=== PATIENT | female | born 1960 | race Caucasian/White ===

== ENCOUNTER 2016-03-30 14:11 | Emergency (ER) | payer MEDICARE, MEDICAID ==
[2016-03-30 14:35] VITALS: TEMP 97.9; BMI 31.3
--- NOTE | 2016-03-30 16:43 | EDPRACDOC ---
- General Information Chief Complaint: Generalized Weakness Stated Complaint: AMS Time Seen by Provider: 03/30/16 16:32 Information Source: Patient Mode of Arrival: Ambulance Home Medications: Home Medications Cholecalciferol (Vitamin D3) [Vitamin D3] 5,000 unit PO DAILY 07/17/15 Levothyroxine Sodium [Synthroid] 100 mcg PO QAM 07/17/15 Multivitamin [Multivitamins] 1 cap PO QAM 07/17/15 Sennosides/Docusate Sodium [Senna-Docusate Sodium Tablet] 1 tab PO DAILY Sumatriptan Succinate [Imitrex] 100 mg PO DIR PRN 10/31/15 Budesonide/Formoterol Fumarate [Symbicort 160-4.5 Mcg Inhaler] 2 puff INH BID PRN 11/25/15 Ipratropium/Albuterol Sulfate [Combivent Respimat Inhal Scheller] 1 puff INH TID PRN 11/25/15 Tizanidine HCl [Zanaflex] 4 mg PO TID PRN 11/25/15 Vitamin B Complex [B Complex] 1 tab PO QAM 11/25/15 Magnesium Oxide [Mag-Ox] 400 mg PO BID #60 tablet 12/03/15 Aripiprazole [Abilify] 15 mg PO QAM 01/08/16 Duloxetine [Cymbalta] 60 mg PO QAM 01/08/16 Oxycodone HCl [Oxycodone Immediate Release] 15 mg PO QID PRN 01/08/16 Oxymorphone HCl [Oxymorphone HCl ER] 20 mg PO Q12H 01/08/16 Albuterol Sulfate [Proair Hfa] 2 puff INH Q4-6H PRN 01/17/16 Omeprazole 40 mg PO BID 01/17/16 Clonazepam 0.5 mg PO BID PRN 02/10/16 Bethanechol Chloride [Urecholine] 25 mg PO TID #90 tablet 02/26/16 L.acidoph/B.animalis/B.longum [Florajen3 Capsule] 460 mg PO BID #120 capsule Duloxetine HCl [Cymbalta] 30 mg PO HS 03/30/16 Furosemide [Lasix] 40 mg PO QAM 03/30/16 Furosemide [Lasix] 80 mg PO .DAILY@1600 01/01/17 Levetiracetam [Keppra] 750 mg PO TID 03/30/16 Mirapex Unknown Dose 1 tab PO BID 03/30/16 Promethazine HCl 25 mg PO Q8H PRN 03/30/16 Allergies/Adverse Reactions: Allergies Allergy/AdvReac Type Severity Reaction Status Date / Time cefuroxime axetil Allergy Nausea only Verified 03/30/16 17:04 [From Ceftin] metolazone [From Zaroxolyn] Allergy Nausea only Verified 03/30/16 17:04 oxycodone HCl Allergy Itching Verified 03/30/16 17:04 [From OxyContin] - History of Present Illness Onset: [employer] HPI: H/O CHF. TOLD TO COME TO ER IF SIGNS OF LOSING OXYGEN. FEET STARTED SWELLING. MOUTH DRY. CONCERNED ABOUT DEHYDRATION. NO SOB, N/V. NO CHEST PAIN. USING DEHUMIDIFYER. NASAL CONGESTION. GETTING CALLED IN [facility] BY DR SORENSON. PT DID NOT PASS OUT. ED Past Medical History - Patient Medical History Neurological History: Reports: Migraine (and CHRONIC TREMOR) Cardiac History: Reports: Hypertension, Congestive Heart Failure (Hx of. ECHO 2014: EF 58%, normal function. No evidence pulm HTN.), Cardiac Catheterization Respiratory History: Reports: Asthma, COPD (wears 3L NC at home), Pneumonia, Emphysema (JODI doesn't have CPAP at home.) GI/ History: Reports: Urinary Tract Infection, Gastroesophageal Reflux Musculoskeletal History: Reports: Arthritis (and back pain. On chronic narcotic medications. Chronic pain.) Psychological History: Reports: Depression, Anxiety, Bipolar Disorder, Substance Use Disorder Systemic History: Reports: Hypothyroidism Surgical History: Reports: Cholecystectomy, Cardiac Catheterization, Tonsillectomy/Adnoidectomy, Other (Lumbar L4-5 surgery.) - Family Medical History Reports: Hypertension (Mother), Diabetes (Mother), Cancer (Sister: brain and lung cancer.). Denies: Stroke, Cardiac Disorders - Social Medical History Smoking Status: Former smoker Social History: Reports: Substance Use Disorder EDM Review of Systems - Review of Systems ROS Negative Except as Marked: Yes All systems reviewed and were negative except as marked Constitutional: No Symptoms Reported Mouth: Dry Mouth Respiratory: Cough (VERY LITTLE) Cardiovascular: No Symptoms Reported Gastrointestinal: No Symptoms Reported Genitourinary: No Symptoms Reported - Physical Exam Constitutional: Alert (Awake), No apparent distress Oriented to: Time, Person, Place Last recorded Vital Signs: Last Vital Signs Temp 97.9 F 03/30/16 14:23 Pulse 92 03/30/16 14:23 Resp 18 03/30/16 14:23 BP 137/78 03/30/16 14:23 Pulse Ox 100 03/30/16 14:23 Oxygen Pulse Oxygen Saturation 100 O2 Device Nasal Cannula Oxygen Flow Rate 3 Fraction of Inspired Oxygen ( FIO2) - HEENT Head: Normal ( normocephalic) Eye Exam: Normal (PERRL, EOMI, Sclera white) Oropharynx: Normal (Pharynx:Moist without exudate,Gums-no swelling) Nose: No Symptoms Reported (septum midline) Neck: Normal (FROM, trachea at midline) - Respiratory/Cardiovascular Respiratory: Normal - CTA (BBS clear to auscultation without adventitious sounds ) Cardiovascular: Normal (RRR without murmur, gallop or rub) - GI Auscultation: Normal (NABS) Palpation: Normal (Soft,No rebound or guarding, non distended) Tenderness: Non tender Newton's Sign: Negative - Musculoskeletal Back: Normal (Non-Tender) Extremities: Normal (Normal tone, Pulses 2+ No cyanosis or edema, FROM) - Integumentary Skin: Normal, Warm, Dry Lymphatics: Normal (no adenopathy) - Neurologic Memory Impaired: Normal Motor Function: Normal (Normal tone, Pulses 2+ No cyanosis or edema, FROM) Cranial Nerve: Normal (CN II-X11 intact sensation, strength 5/5) Cerebellar: Normal Mood Description: Normal Perception: Normal - EKG EKG #1 EKG Time: 17:36 -: Yes EKG interpreted by me Rate: bpm: 88 [place]: Normal Rhythm: NSR ST: Nonsp Comments: ABNORMAL EKG Comparison: 02/10/16 (NO CHANGE) Decision Time to Discharge: 17:27 - Departure Yes I personally saw and evaluated the patient. Disposition: Home Condition: Stable Final Diagnosis: Cough Instructions: Weakness (General) Education/Counseling Given To: Patient Education/Counseling Given Regarding: Diagnosis Referrals: Genoveva Sorenson MD [Primary Care Provider] - One Week
--- NOTE | 2016-03-30 17:21 | DIRPT ---
CLINICAL DATA: Mild cough. EXAM: CHEST 2 VIEW COMPARISON: 02/10/2016 FINDINGS: Hyperexpansion is consistent with emphysema. The lungs are clear wiithout focal pneumonia, edema, pneumothorax or pleural effusion. The cardiopericardial silhouette is within normal limits for size. The visualized bony structures of the thorax are intact. IMPRESSION: Emphysema without acute cardiopulmonary findings. Electronically Signed By: Clarence Moore M.D. On: 03/30/2016 17:18
[2016-03-30 18:29] VITALS: BP 120/68; PULSE 93
== END 2016-03-30 18:28 | disposition home or self-care (01) ==
LOC: EDMC 14:11 → ED 18:28
DX: R05 Cough (principal); G43.909 Migraine, unspecified, not intractable, without status migrainosus; I10 Essential (primary) hypertension; I50.9 Heart failure, unspecified; J44.9 Chronic obstructive pulmonary disease, unspecified; J45.909 Unspecified asthma, uncomplicated; G47.33 Obstructive sleep apnea (adult) (pediatric); M19.90 Unspecified osteoarthritis, unspecified site; E03.9 Hypothyroidism, unspecified; F41.9 Anxiety disorder, unspecified; F31.9 Bipolar disorder, unspecified; Z87.891 Personal history of nicotine dependence; Z99.81 Dependence on supplemental oxygen; Z79.899 Other long term (current) drug therapy
CPT/HCPCS: 71020; 93005; 99283